=== PATIENT | female | born 1985 | race Caucasian/White ===

== ENCOUNTER → 2017-08-08 | Outpatient (CLI) | payer OTHER | LOC: OD 07:21 | PROVIDERS: ATTEND Obstetrics & Gynecology | DX: Z31.41 Encounter for fertility testing (principal) | CPT/HCPCS: 36415; 83002 ==

== ENCOUNTER → 2017-08-10 | Outpatient (CLI) | payer OTHER | LOC: OD 07:17 | PROVIDERS: ATTEND Obstetrics & Gynecology | DX: N97.0 Female infertility associated with anovulation (principal) | CPT/HCPCS: 36415; 83002 ==

== ENCOUNTER → 2017-08-26 | Outpatient (CLI) | payer OTHER | LOC: OD 11:10 | PROVIDERS: ATTEND Obstetrics & Gynecology | DX: Z32.00 Encounter for pregnancy test, result unknown (principal) | CPT/HCPCS: 36415; 84144; 84702 ==

== ENCOUNTER → 2017-08-30 | Outpatient (CLI) | payer OTHER | LOC: OD 07:32 | PROVIDERS: ATTEND Obstetrics & Gynecology | DX: Z31.41 Encounter for fertility testing (principal); Z32.00 Encounter for pregnancy test, result unknown | CPT/HCPCS: 36415; 84144; 84702 ==